=== PATIENT | male | born 1970 | race African-American/Black ===

== ENCOUNTER 2018-02-15 12:22 | Emergency (ER) | payer SELFPAY ==
[~2018-02-15] VITALS: Ht 180.3 cm; Wt 113.4 kg
[2018-02-15 13:05] VITALS: BP 159/94
[2018-02-15] MEDS ORDERED: LIDOCAINE 2% VISCOUS 15 ML SOLUTION. SWSW ONE (13:15)
[2018-02-15] MEDS ORDERED: HYDROCORTISONE ACETATE 25 MG SUPP.RECT PR ONE (13:15)
[2018-02-15] MEDS ORDERED: MAGNESIUM CITRATE 296 ML SOLUTION. PO ONE (13:15)
[2018-02-15] MEDS ORDERED: HYDR25SU18 RC (13:30)
[2018-02-15] MEDS ORDERED: SENN-37 PO (13:30)
--- NOTE | 2018-02-15 13:30 | PHYS DOC ---
Past Medical History Past Medical History: No Pertinent History Past Surgical History: No Surgical History Alcohol Use: Heavy Drug Use: None Adult General Chief Complaint Chief Complaint: HEMORRHOIDS HPI HPI Patient is a 48 year old male who presents with chronic hemorrhoids. 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 Patient states his hemorrhoids becoming more agitated because of his constipation and since he took this new job. Patient states his constipations been going on for the last 3 days in the hemorrhoids gotten worse over the last couple weeks. States he's never had to see Dr. he just used [id number] medications such as preparation H, cinnamon, we'll remedies. Patient states that this morning he took 3 500 mg Tylenol PM's trying to help the pain. Alert and oriented. Rates pain a 9 out of 10. Patient states that he's been seeing some bright red blood mixed with his stool or after he is trying to manually help stool come out of his rectum. Review of Systems Review of Systems Constitutional: Denies fever or chills [] Eyes: Denies change in visual acuity, redness, or eye pain [] HENT: Denies nasal congestion or sore throat [] Respiratory: Denies cough or shortness of breath [] Cardiovascular: No additional information not addressed in HPI [] GI: Rectal pain. Constipations. Blood with stools. Denies abdominal pain, nausea , vomiting, bloody stools or diarrhea [] : Denies dysuria or hematuria [] Musculoskeletal: Denies back pain or joint pain [] Integument: Denies rash or skin lesions [] Neurologic: Denies headache, focal weakness or sensory changes [] Endocrine: Denies polyuria or polydipsia [] All other systems were reviewed and found to be within normal limits, except as documented in this note. Current Medications Current Medications Current Medications Medications (Trade) Dose Ordered Sig/Evelia Start Time Stop Time Status Last Admin Dose Admin Hydrocortisone Acetate (Anucort-Hc) 25 mg 1X ONCE 02/15/18 13:15 02/15/18 13:24 DC 02/15/18 13:38 25 MG Lidocaine HCl (Viscous Lidocaine) 15 ml 1X ONCE 02/15/18 13:15 02/15/18 13:24 DC 02/15/18 13:38 15 ML Magnesium Citrate (Citroma) 296 ml 1X ONCE 12/12/18 13:15 02/15/18 13:24 DC 02/15/18 13:38 296 ML Allergies Allergies Allergies Coded Allergies Type Severity Reaction Last Updated Verified No Known Drug Allergies 06/02/13 No Physical Exam Physical Exam Constitutional: Well developed, well nourished, no acute distress, non-toxic appearance. [] HENT: Normocephalic, atraumatic, bilateral external ears normal, oropharynx moist, no oral exudates, nose normal. [] Eyes: PERRLA, EOMI, conjunctiva normal, no discharge. [] Neck: Normal range of motion, no tenderness, supple, no stridor. [] Cardiovascular:Heart rate regular rhythm, no murmur [] Lungs & Thorax: Bilateral breath sounds clear to auscultation [] Abdomen: external rectal hemorrhoids. No blood seen during the rectal exam. Bowel sounds normal, soft, no tenderness, no masses, no pulsatile masses. [] Skin: Warm, dry, no erythema, no rash. [] Back: No tenderness, no CVA tenderness. [] Extremities: No tenderness, no cyanosis, no clubbing, ROM intact, no edema. [] Neurologic: Alert and oriented X 3, normal motor function, normal sensory function, no focal deficits noted. [] Psychologic: Affect normal, judgement normal, mood normal. [] Current Patient Data Vital Signs Vital Signs Date Time Temp Pulse Resp B/P (MAP) Pulse Ox O2 Delivery O2 Flow Rate FiO2 02/15/18 13:05 98.3 74 18 159/94 (115) 98 Room Air 98.3 Lab Values Laboratory Tests Test 02/15/18 13:20 Stool Occult Blood Positive (NEG) EKG EKG [] Radiology/Procedures Radiology/Procedures [] Course & Med Decision Making Course & Med Decision Making Patient is a 48 year old male who presents with chronic hemorrhoids. 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 Patient states his hemorrhoids becoming more agitated because of his constipation and since he took this new job. Patient states his constipations been going on for the last 3 days in the hemorrhoids gotten worse over the last couple weeks. States he's never had to see . he just used [id number] medications such as preparation H, cinnamon, we'll remedies. Patient states that this morning he took (3) 500 mg Tylenol PM's trying to help the pain. Alert and oriented. Rates pain a 9 out of 10. Patient states that he's been seeing some bright red blood mixed with his stool or after he is trying to manually help stool come out of his rectum. Patient is afebrile. Vital signs are normal. He denies dizziness, chest pain, shortness of air, abdominal pain. Abdomen soft and nontender. Lungs are clear to auscultation. On rectal exam there are 2 half quarter-sized hemorrhoids on the outside side of the rectum. There is no redness around the rectum. I'm able to do a rectal exam without causing the patient pain and there was no stool or lumps or masses felt in the rectal vault. Rectal exam is done with Nurse present and Hemoccult is done and sent to lab. Patient is given Anusol and viscous lidocaine is applied around outside of rectum in the ED. Patient to take Mag citrate to help him have a bowel movement. I also wrote him a prescription for Anusol and senna-Colace. Patient is referred to a GI doctor or needs to follow up with his primary care. Dragon Disclaimer Dragon Disclaimer This electronic medical record was generated, in whole or in part, using a voice recognition dictation system. Departure Departure Impression: Primary Impression: Bleeding hemorrhoids Additional Impression: Constipation Disposition: 01 HOME, SELF-CARE Condition: STABLE Referrals: NO PCP (PCP) CHANDRIKA SANDERS MD Patient Instructions: Constipation, Adult, Hemorrhoids Additional Instructions: Follow up with the GI doctor or your primary care. Use medications as prescribed. Scripts Sennosides/Docusate Sodium (SENOKOT-S TABLET) 1 Each Tablet 1 TAB PO BID, #30 TAB Prov: BALAJI JAMES APRN 02/15/18 Hydrocortisone Acetate (ANUSOL-HC) 25 Mg Supp.rect 1 SUPP RC BID, #28 SUPP 1 Refill Prov: BALAJI JAMES APRN 02/15/18 Problem Qualifiers Additional Impression: Constipation Constipation type: unspecified constipation type Qualified Codes: K59.00 - Constipation, unspecified BALAJI JAMES APRN Feb 15, 2018 13:30 DENICE COOK MD Feb 15, 2018 14:56
[2018-02-15 13:35] LABS: FECAL OB PT POSITIVE (NEG)
== END 2018-02-15 14:12 | disposition home or self-care (01) ==
LOC: ER 12:22
DX: K64.9 Unspecified hemorrhoids (principal); K59.00 Constipation, unspecified; K92.1 Melena; F10.20 Alcohol dependence, uncomplicated; Y90.9 Presence of alcohol in blood, level not specified
CPT/HCPCS: 82274; 99284